=== PATIENT | female | born 1945 | race Caucasian/White ===

== ENCOUNTER 2017-04-24 20:05 | Inpatient (IN) | payer OTHER, MEDICARE ==
[~2017-04-24] VITALS: Ht 157.5 cm; Wt 77.1 kg
--- NOTE | 2017-04-24 20:33 | ED UPPER/LOWER EXTREMITY COMPL ---
History of Present Illness General Chief Complaint: Animal/Insect Bite Stated Complaint: "CAT BITE LT WRIST THIS MORNING" Source: patient Exam Limitations: no limitations Vital Signs & Intake/Output Vital Signs & Intake/Output Vital Signs Date Time Temp Pulse Resp B/P B/P Pulse O2 O2 Flow FiO2 Mean Ox Delivery Rate 04/24 2025 99.8 84 18 156/88 97 Room Air Allergies Coded Allergies: amoxicillin (From AUGMENTIN) (RASH 04/24/17) clarithromycin (RASH 04/24/17) clavulanic acid (From AUGMENTIN) (RASH 04/24/17) warfarin (RASH FROM GENERIC OKAY WITH BRAND NAME PER PT 04/24/17) Reconcile Medications Apixaban (Eliquis) 2.5 MG TABLET 1 TAB PO BID BLOOD THINNER (Reported) Aspirin (Ecotrin*) 81 MG TABLET.DR 1 TAB PO QAM HEART/BLOOD (Reported) Atorvastatin Calcium 40 MG TABLET 1 TAB PO DAILY CHOLESTEROL (Reported) Isosorbide Mononitrate (Isosorbide Mononitrate ER) 60 MG TAB.ER.24H 1 TAB PO DAILY HEART (Reported) Lisinopril 5 MG TABLET 1 TAB PO DAILY BP (Reported) Metoprolol Succ XL (Toprol XL) 25 MG TAB 1 TAB PO DAILY HEART/BP (Reported) Omeprazole 20 MG CAPSULE.DR 1 CAP PO DAILY GI (Reported) Triage Note: 72F SUSTAINED CAT BITE TO LEFT FOREARM THIS MORNING BY HER CAT. REPORTS IT IS UTD ON IT'S SHOTS. PT TOOK A CIPRO 500MG BUT REDNESS AND SWELLING IS WORSENING AND ASCENDING UP ARM. TEMP 99.8 IN TRIAGE. NOTIFIED FOR ORDERS. Triage Nurses Notes Reviewed? yes Onset: Gradual Duration: day(s): Timing: recent history Severity: moderate Pain/Injury Location: Left: Wrist. Method of Injury: cat bite Modifying Factors: Improves With: rest. Associated Symptoms: swelling, redness HPI: 72 yo woman was bit by her cat in her left wrist earlier this morning. She notes that the redness, tenderness and swelling began soon thereafter and worsened this evening. She notes that the redness is traveling up her forearm. She notes no fever, chills, discharge. She is otherwise well. Past History Travel History Traveled to [place] past 21 day No Medical History Any Pertinent Medical History? see below for history Cardiovascular: CAD History of MRSA: No History of VRE: No History of CDIFF: No Pneumonia Vaccine: 12/16/11 Influenza Vaccine: 01/13/13 Surgical History Surgical History: ptca Psychosocial History Who do you live with Daughter Services at Home None What is your primary language Bulgarian Family History Family History, If Any: MOTHER (CAD in her 50sHeart Failure in 70s). BROTHER (Bypass surgery in 60s). FATHER (lung cancer). Hx Contributory? No Review of Systems Review of Systems Constitutional: Reports: no symptoms. EENTM: Reports: no symptoms. Respiratory: Reports: no symptoms. Cardiovascular: Reports: no symptoms. Gastrointestinal/Abdominal: Reports: no symptoms. Genitourinary: Reports: no symptoms. Musculoskeletal: Reports: no symptoms. Skin: Reports: no symptoms. Neurological/Psychological: Reports: no symptoms. Hematologic/Endocrine: Reports: no symptoms. Immunological: Reports: no symptoms. All Other Systems: Reviewed and Negative Physical Exam Physical Exam General Appearance: well developed/nourished, mild distress Head: atraumatic Eyes: Bilateral: normal appearance. Ears, Nose, Throat: normal pharynx, normal ENT inspection, hearing grossly normal Neck: normal inspection, supple Cardiovascular/Respiratory: regular rate/rhythm Back: normal inspection Hand Left: 4 punctate lesions in left wrist with erythema, swelling, no discharge. the area of swelling/erythema is 3x4cm, there is a lymphangitic streak that extends to upper anterior and posterior forearm. no crepitus. ROM is normal. Skin: intact, normal color, warm/dry Lymphatic: no anterior cervical vasyl Progress Differential Diagnosis: cellulitis, cat bite vs other. Plan of Care: Orders Procedure Date/time Status Nothing by Mouth 04/25 B Active Saline Lock 04/24 2245 Active Misc Message 04/24 2245 Active ED Holding Orders 04/24 2245 Active Admit to inpatient 04/24 2245 Active Vital Signs 04/24 2245 Active Code Status 04/24 2245 Active EKG 04/24 2045 Active BLOOD CULTURE 04/24 2034 Active BLOOD CULTURE 04/24 2029 Active COMPREHENSIVE METABOLIC PANEL 04/24 2029 Complete CBC WITHOUT DIFFERENTIAL 04/24 2029 Complete Laboratory Tests 04/24/172046: Anion Gap 13, Estimated GFR > 60, BUN/Creatinine Ratio 21.1, Glucose 103 H, Calcium 9.5, Total Bilirubin 0.8, AST 70 H, ALT 94 H, Alkaline Phosphatase 91, Total Protein 7.4, Albumin 4.5, Globulin 2.9, Albumin/Globulin Ratio 1.6, CBC w Diff NO MAN DIFF REQ, RBC 4.11 L, MCV 93.3, MCH 31.0, MCHC 33.3, RDW 13.2, MPV 7.6, Gran % 77.2 H, Lymphocytes % 13.7 L, Monocytes % 7.9, Eosinophils % 0.8, Basophils % 0.4, Absolute Granulocytes 9.6 H, Absolute Lymphocytes 1.7, Absolute Monocytes 1.0 H, Absolute Eosinophils 0.1, Absolute Basophils 0.1 Microbiology 04/24 2142 BLOOD: Blood Culture - RECD 04/24 2046 BLOOD: Blood Culture - RECD Diagnostic Imaging: Viewed by Me: Radiology Read. Discussed w/RAD: Radiology Read. Radiology Impression: PATIENT: OLIVER PLASENCIA PRESENT AGE: 72 PATIENT ACCOUNT NO: [id number] : 44 LOCATION: [facility] ORDERING PHYSICIAN: Thor Faria MD SERVICE DATE: 04/24/17-2029 EXAM TYPE: RAD - XRY-FOREARM, LEFT; XRY-WRIST COMPLETE-LEFT EXAMINATION: XR FOREARM, LEFT Left wrist series CLINICAL INFORMATION: Pain swelling COMPARISON: None TECHNIQUE: AP and lateral views of the left forearm were obtained. 4 views of the left wrist FINDINGS: Left wrist: There is prominent chondrocalcinosis most evident along the triangle fibrocartilage complex. There is severe arthrosis of the first carpometacarpal joint manifested by joint space narrowing prominent marginal osteophytes subchondral cystic change and subluxation. The remaining bone and joints are normal. Left forearm - the radius and ulna are intact without fracture. IMPRESSION: Chondrocalcinosis. Severe arthrosis of the first carpometacarpal joint No abnormality of the ulna or radius. DICTATED BY: Kevin Tavares MD DATE/TIME DICTATED:04/24/172121 HAND SILVERING SUPERVISOR: MOIRA DATE/TIME TRANSCRIBED:04/24/172121 CONFIDENTIAL, DO NOT COPY WITHOUT APPROPRIATE AUTHORIZATION. <Electronically signed in Other Vendor System> SIGNED BY: Kevin Tavares MD 04/24/172129 Initial ED EKG: nsr, no acute changes. Comments: PATIENT: OLIVER PLASENCIA PRESENT AGE: 72 PATIENT ACCOUNT NO: [id number] : 44 LOCATION: [facility] ORDERING PHYSICIAN: Thor Faria MD SERVICE DATE: 04/24/17 EXAM TYPE: RAD - XRY-FOREARM, LEFT; XRY-WRIST COMPLETE-LEFT EXAMINATION: XR FOREARM, LEFT Left wrist series CLINICAL INFORMATION: Pain swelling COMPARISON: None TECHNIQUE: AP and lateral views of the left forearm were obtained. 4 views of the left wrist FINDINGS: Left wrist: There is prominent chondrocalcinosis most evident along the triangle fibrocartilage complex. There is severe arthrosis of the first carpometacarpal joint manifested by joint space narrowing prominent marginal osteophytes subchondral cystic change and subluxation. The remaining bone and joints are normal. Left forearm - the radius and ulna are intact without fracture. IMPRESSION: Chondrocalcinosis. Severe arthrosis of the first carpometacarpal joint No abnormality of the ulna or radius. DICTATED BY: Kevin Tavares MD DATE/TIME DICTATED:04/24/172121 HAND SILVERING SUPERVISOR:MOIRA DATE/TIME TRANSCRIBED:04/24/172121 CONFIDENTIAL, DO NOT COPY WITHOUT APPROPRIATE AUTHORIZATION. <Electronically signed in Other Vendor System> SIGNED BY: Kevin Tavares MD 04/24 Departure Departure Disposition: STILL A PATIENT Condition: Stable Clinical Impression Primary Impression: Cat bite involving extremity Secondary Impressions: Cellulitis Referrals: Reena Ku (PCP) Departure Forms: Customer Survey General Discharge Information
[2017-04-24 20:58] LABS: ABSOLUTE BASOPHIL COUNT 0.1 /CUMM (0.0-0.2); ABSOLUTE EOSINOPHIL COUNT 0.1 /CUMM (0.0-0.7); ABSOLUTE GRANULOCYTE CT 9.6 /CUMM (1.4-6.5); ABSOLUTE LYMPH COUNT 1.7 /CUMM (1.2-3.4); BASOPHIL % 0.4 % (0.0-2.0); EOSINOPHIL % 0.8 % (0-5); GRANULOCYTE % 77.2 % (42.2-75.2); HEMATOCRIT 38.3 % (37-47); MEAN CORPUSCULAR HGB CONC 33.3 G/DL (33.0-37.0); MEAN CORPUSCULAR VOLUME 93.3 FL (81.0-99.0); MEAN PLATELET VOLUME 7.6 FL (7.4-10.4); PLATELET COUNT 217 /CUMM (130-400); RBC DISTRIBUTION WIDTH 13.2 % (11.5-14.5); RED BLOOD CELL CT 4.11 /CUMM (4.20-5.40); WHITE BLOOD CELL COUNT 12.4 /CUMM (4.8-10.8)
--- NOTE | 2017-04-24 21:30 | RADIOLOGY REPORT ---
EXAMINATION: XR FOREARM, LEFT Left wrist series CLINICAL INFORMATION: Pain swelling COMPARISON: None TECHNIQUE: AP and lateral views of the left forearm were obtained. 4 views of the left wrist FINDINGS: Left wrist: There is prominent chondrocalcinosis most evident along the triangle fibrocartilage complex. There is severe arthrosis of the first carpometacarpal joint manifested by joint space narrowing prominent marginal osteophytes subchondral cystic change and subluxation. The remaining bone and joints are normal. Left forearm - the radius and ulna are intact without fracture. IMPRESSION: Chondrocalcinosis. Severe arthrosis of the first carpometacarpal joint No abnormality of the ulna or radius.
[2017-04-24] MEDS ORDERED: ELIQUIS2.5 M1 PO (22:16)
[2017-04-24] MEDS ORDERED: ASPIRIN EC81 M1 PO (22:16)
[2017-04-24] MEDS ORDERED: OMEPRAZOLE20 M2 PO (22:18)
[2017-04-24] MEDS ORDERED: LISINOPRIL5 M1 PO (22:47)
[2017-04-24] MEDS ORDERED: ATORVASTATIN CA40 M1 PO (22:47)
[2017-04-24] MEDS ORDERED: TOPROL XL25 M1 PO (22:47)
[2017-04-24] MEDS ORDERED: ISOSORBIDE MONO60 M1 PO (22:48)
--- NOTE | 2017-04-25 01:22 | History & Physical ---
Renata Knowles MD 04/25/17 0121: General Information and HPI MD Statement: I have seen and personally examined OLIVER PLASENCIA and documented this H&P. The patient is a 72 year old F who presented with a patient stated chief complaint of []. Source of Information: patient, old records, EMS Exam Limitations: no limitations History of Present Illness: Patient is a 72-year-old female with a PMH of CAD s/p recent bare metal stent placed to the LAD followed by periprocedural OR (EF 45% 2013), recurrent UTI on cipro, urinary incontinence presented to [place] with worsening of left hand erythema and swelling after her cat bite this morning. She was trying to inject insulin to her cat and subsequently bitten by her cat. She started to experience swelling followed by erythema and worsening pain prompting her to come to ER. She reported excruciating pain with spreading of the swelling/erythema despite taking ciprofloxacin in the morning. She is compliant with all her medications. She does have shortness of breath with exertion at baseline with dry cough, mild swelling of the legs. Denies any fever/pain/palpitations/dizziness/lightheadedness. Allergies/Medications Allergies: Coded Allergies: amoxicillin (From AUGMENTIN) (RASH 04/24/17) clarithromycin (RASH 04/24/17) clavulanic acid (From AUGMENTIN) (RASH 04/24/17) warfarin (RASH FROM GENERIC OKAY WITH BRAND NAME PER PT 04/24/17) Home Med list Apixaban (Eliquis) 2.5 MG TABLET 1 TAB PO BID BLOOD THINNER (Reported) Aspirin (Ecotrin*) 81 MG TABLET.DR 1 TAB PO QAM HEART/BLOOD (Reported) Atorvastatin Calcium 40 MG TABLET 1 TAB PO DAILY CHOLESTEROL (Reported) Isosorbide Mononitrate (Isosorbide Mononitrate ER) 60 MG TAB.ER.24H 1 TAB PO DAILY HEART (Reported) Lisinopril 5 MG TABLET 1 TAB PO DAILY BP (Reported) Metoprolol Succ XL (Toprol XL) 25 MG TAB 1 TAB PO DAILY HEART/BP (Reported) Omeprazole 20 MG CAPSULE.DR 1 CAP PO DAILY GI (Reported) Compliance With Home Meds: GOOD Past History Travel History Traveled to [place] past 21 day No Medical History Cardiovascular: CAD History of MRSA: No History of VRE: No History of CDIFF: No Pneumonia Vaccine: 12/16/11 Influenza Vaccine: 01/13/13 Surgical History Surgical History: ptca Past Family/Social History Family History Relations & Conditions if any MOTHER (CAD in her 50sHeart Failure in 70s). BROTHER (Bypass surgery in 60s). FATHER (lung cancer). Psychosocial History Where do you live? Home Who Do You Live With? child Services at Home: None Primary Language: Romanian Smoking Status: Former Smoker ETOH Use: occasional use Illicit Drug Use: denies illicit drug use Functional Ability ADLs Independent: dressing, eating, toileting, bathing. Ambulation: independent IADLs Independent: shopping, housework, finances, food prep, telephone, transportation , medication admin. Review of Systems Review of Systems Constitutional: Reports: no symptoms. EENTM: Reports: no symptoms. Cardiovascular: Reports: no symptoms. Respiratory: Reports: no symptoms. Exam & Diagnostic Data Last 24 Hrs of Vital Signs/I&O Vital Signs Date Time Temp Pulse Resp B/P B/P Pulse O2 O2 Flow FiO2 Mean Ox Delivery Rate 04/25 0116 98.8 80 16 110/58 98 Room Air 04/24 2331 99.0 85 18 104/54 98 Room Air 04/24 2026 99.8 84 18 156/88 97 Room Air Intake & Output 04/25 0800 04/25 0000 04/24 1600 Intake Total Output Total Balance Patient 77.111 kg Weight Weight Reported by Patient Measurement Method Physical Exam General Appearance Alert, Oriented X3, Cooperative Skin No Breakdown, significant erythema with swelling on the right upper extremity, evident bites on the hand. Tender to touch Skin Temp/Moisture Exam: Warm/Dry HEENT Atraumatic, PERRLA Neck Supple, No JVD Cardiovascular Normal S1, Normal S2 Lungs Clear to Auscultation, Normal Air Movement Abdomen Normal Bowel Sounds, Soft, No Tenderness Neurological Normal Gait, Normal Speech, Strength at 5/5 X4 Ext, Normal Tone, Sensation Intact Extremities No Clubbing, No Cyanosis, 2+ pitting edema present Vascular Normal Pulses, Pulses Symmetrical Assessment/Plan Assessment: Patient is a 72-year-old female with a PMH of CAd, periprocedural OR (EF 45% 2013), recurrent UTI on cipro, urinary incontinence presented to [facility] with worsening of left hand erythema and swelling after bitten by her cat despite taking ciprofloxacin. Vitals are unreamrakable. Physical exam notable for left upper extremity erythema, swelling with tenderness on palpation. Cat bites are clearly visible on the left wrist region. Rash extended upto the elbow. Heart s1 , s2 normal. Lungs clear, abdomen benign. Lower extrmities 2+ edema present. Labs significant for white count of 12, mild transaminitis. Cat bite cellulitis Plan Admit to general medicine floor Cat bite cellulitis - left hand Patient is immunocompetent. Coverage should be broad including strep, staph, anerobes, Gram negative(Pasturella/capnocytophagia). As she is allergic to penicillin with rash which can cover all of these, it is required to cover with dual agents. IV ceftriaxone to cover Gram negative and gram positives, IV metrogyl to cover anerobes. Pain management with percocet, morphine. We will obtain a ultrasond of the left hand to rule out abscess. Patient did know that we are not having plastic surgery back up and need to be. transferred if deemed. Hisotory of CAD and OR with EF 45% continue ASA 81mg, Imdur 60mg, lisinopril 5mg, Trasaminitis - likely infection related Hold - Atrovastatin 40mg daily History of ?PE On Apixaban 2.5mg BID History of recurrent UTI - prophylactically on cipro Urinary incontinence DVT prophylaxis as above Code stauts full code As Ranked By This Provider Problem List: 1. Cat bite involving extremity 2. Cellulitis 3. Full code status Core Measures/Misc (11/30) Acute Coronary Syndrome ACS Diagnosis: No Congestive Heart Failure Congestive Heart Failure Diagnosis No Cerebrovascular Accident CVA/TIA Diagnosis: No VTE (View Protocol) VTE Risk Factors Acute Medical Illness No Mechanical VTE Prophylaxis d/t N/A MechProphylax Ordered No VTE Pharm Prophylaxis d/t NA PharmProphylax ordered Sepsis (View protocol) Sepsis Present: No Resident Review Statement Resident Statement: examined this patient, discussed with internal corrosion specialist, agreed with internal corrosion specialist, discussed with family, reviewed EMR data (avail), discussed with nursing , discussed with case mgmt, reviewed images, amended to note Other Findings: ABOVE Jonny HINSON, [facility] 04/25/17 0140: Attending MD Review Statement Attending Statement Attending MD Statement: examined this patient, discuss w/resident/PA/RECYCLING OR RUBBISH COLLECTOR, agreed w/resident/PA/RECYCLING OR RUBBISH COLLECTOR, reviewed images, amended to note Attending Assessment/Plan: 72 yo F with h/o HTN, CAD s/p stent (2014, c/b periprocedural OR), PE on eliquis , recurrent UTI's on Cipro, is here for evaluation of left hand pain and swelling. Patient sustained a cat bite to her left wrist while she was trying to administer insulin to her diabetic domestic cat (vaccinated). She gradually developed swelling and erythema around the wrist extending to the forearm. She also experiened pain which brought her in to the ER. She took her regular dose of Cipro but noticed it did not help her symptoms. Vitals stable: Tmax 99.8. Left wrist/hand diffuse swelling 4x4 cm area noted to left wrist, no fluctuance or discharge, 3-4 punctate cat bite mota noted with erythema extending from wrist to forearm. Hand/ fingers are not involved, no swelling. ROM of fingers is normal, wrist is limited but present. Peripheral pulses are well felt. No lymphadenopathy appreciated. Labs: WBC 12.4, BUN 19, AST 70, ALT 94. Wrist and forearm Xray: chondrocalcinosis, severe arthrosis of first carpometacarpal joint. No abnormality of radius or ulna. EKG: sinus rhythm. Assessment and plan: 1. Left hand cellulitis secondary to cat bite 2. Transaminitis 2/2 infection 3. History of CAD 4. Essential hypertension 5. History of PE on eliquis - Admit to General medicine - Elevate left hand - Neurovascular checks Q4 - Blood cultures x 2 - Obtain left hand ultrasound to assess for abscess - Patient has multiple antibiotic allergies, will continue with ceftriaxone and flagyl for gram negative and anaerobic coverage - Gentle hydration - Pain management with percocet or morphine - We do not have anyone on Plastic surgery on-call this weekend. I explained this to the patient and also gave her the option of being transferred from ER to [facility]. However, she decided to stay and continue antibiotics, and if need arises is ok to be transferred. - Trend LFTs, hold statin for now until transaminitis resolves. DVT ppx Eliquis. Full code.
--- NOTE | 2017-04-25 06:21 | Admission Certification ---
Admission Certification Certification Statement - As attending physician, I certify that at the time of - admission, based on clinical presentation, severity of - symptoms, need for further diagnostic testing and - therapeutic interventions, and risk of adverse outcomes - without in-hospital treatment, in my clinical assessment, - this patient requires an acute hospital stay for a minimum - of two nights or longer. I have also considered psychsocial - factors such as support system, advanced age, financial - issues, cognitive issues, and failed out-patient treatments, - past re-admission history, safety of patient, and lack of - compliance as applicable. Specific rationale supporting this admission is: Cat bite cellulitis of left hand.
[2017-04-25 06:28] VITALS: BP 124/72
--- NOTE | 2017-04-25 14:14 | PN- Att Addend ---
Attending Addendum Attending Brief Note Patient seen and examined, the left hand/wrist/upper extremity is overall improving. She still has pain and limited range of motion but it's better than before. Vital Signs Date Time Temp Pulse Resp B/P B/P Pulse O2 O2 Flow FiO2 Mean Ox Delivery Rate 04/25 949 84 130/62 04/25 0850 84 130/62 04/25 0850 84 130/62 04/25 0628 98.1 82 18 124/72 95 Room Air 04/25 0116 98.8 80 16 110/58 98 Room Air 04/24 2331 99.0 85 18 104/54 98 Room Air 04/24 2025 99.8 84 18 156/88 97 Room Air on exam; aox3, nad. cv; s1,s2, rrr resp; clear abd; soft, nt, bs+ ext; no edema skin; erythema on the left upper extremity is improving as well as the swelling. Laboratory Tests 04/25 Chemistry Sodium (137 - 145 mmol/L) 138 Potassium (3.5 - 5.1 mmol/L) 4.1 Chloride (98 - 107 mmol/L) 100 Carbon Dioxide (22 - 30 mmol/L) 25 Anion Gap (5 - 16) 13 BUN (7 - 17 mg/dL) 19 H Creatinine (0.5 - 1.0 mg/dL) 0.9 Estimated GFR (>60 ml/min) > 60 BUN/Creatinine Ratio (7 - 25 %) 21.1 Glucose (65 - 99 mg/dL) 103 H Calcium (8.4 - 10.2 mg/dL) 9.5 Total Bilirubin (0.2 - 1.3 mg/dL) 0.8 AST (14 - 36 U/L) 70 H ALT (9 - 52 U/L) 94 H Alkaline Phosphatase (<127 U/L) 91 Total Protein (6.3 - 8.2 g/dL) 7.4 Albumin (3.5 - 5.0 g/dL) 4.5 Globulin (1.9 - 4.2 gm/dL) 2.9 Albumin/Globulin Ratio (1.1 - 2.2 %) 1.6 Hematology CBC w Diff NO MAN DIFF REQ WBC (4.8 - 10.8 /CUMM) 12.4 H RBC (4.20 - 5.40 /CUMM) 4.11 L Hgb (12.0 - 16.0 G/DL) 12.7 Hct (37 - 47 %) 38.3 MCV (81.0 - 99.0 FL) 93.3 MCH (27.0 - 31.0 PG) 31.0 MCHC (33.0 - 37.0 G/DL) 33.3 RDW (11.5 - 14.5 %) 13.2 Plt Count (130 - 400 /CUMM) 217 MPV (7.4 - 10.4 FL) 7.6 Gran % (42.2 - 75.2 %) 77.2 H Lymphocytes % (20.5 - 51.1 %) 13.7 L Monocytes % (1.7 - 9.3 %) 7.9 Eosinophils % (0 - 5 %) 0.8 Basophils % (0.0 - 2.0 %) 0.4 Absolute Granulocytes (1.4 - 6.5 /CUMM) 9.6 H Absolute Lymphocytes (1.2 - 3.4 /CUMM) 1.7 Absolute Monocytes (0.10 - 0.60 /CUMM) 1.0 H Absolute Eosinophils (0.0 - 0.7 /CUMM) 0.1 Absolute Basophils (0.0 - 0.2 /CUMM) 0.1 Urines Urine Color (YEL,AMB,STR) YEL Urine Clarity (CLEAR) CLEAR Urine pH (5.0 - 8.0) 6.0 Ur Specific [place] (1.001 - 1.035) 1.010 Urine Protein (NEG,<30 MG/DL) NEG Urine Ketones (NEG) NEG Urine Nitrite (NEG) NEG Urine Bilirubin (NEG) NEG Urine Urobilinogen (0.1 - 1.0 EU/dl) 0.2 Ur Leukocyte Esterase (NEG) TRACE H Ur Microscopic SEDIMENT EXAMINED Urine RBC (0 - 5 /HPF) RARE Urine WBC (0 - 2 /HPF) RARE Ur Epithelial Cells (NONE,FEW) FEW Urine Bacteria (NEG/NONE) RARE H Urine Hemoglobin (NEG) NEG Urine Glucose (N MG/DL) NEG A/P; 72 y/o F with pmh sig for PMH of CAD s/p recent bare metal stent placed to the LAD followed by periprocedural MS (EF 45% 2013), recurrent UTI on cipro, urinary incontinence PE on eliquis, admitted with left upper extremity cellulitis secondary to get bite. We'll continue the current antibiotics and follow the response. We'll follow-up on the blood cultures. As noted on Dr. Fuller's note yesterday, patient did not want to go to [place] for the plastic surgery. We'll continue the rest of the medications. DVT prophylaxis: Kristin.
[2017-04-25 14:39] VITALS: BP 124/58
--- NOTE | 2017-04-25 14:46 | ULTRASOUND REPORT ---
EXAMINATION: US SUPERFICIAL IMAGING, LEFT WRIST/FOREARM CLINICAL INFORMATION: Erythema and swelling with drainage on the forearm. COMPARISON: None TECHNIQUE: -Oriented linear transducer using grayscale and color Doppler sonographic technique is used to assess the left wrist and left forearm at the site of a cat bite and cellulitis. FINDINGS/IMPRESSION: Edematous and hyperemic subcutaneous soft tissues are seen at the site of the reported cat bite involving the left forearm and wrist, compatible with cellulitis. No discrete drainable fluid collections are identified.
[2017-04-25 22:40] VITALS: BP 106/60
[2017-04-26 06:46] VITALS: BP 117/64
[2017-04-26 08:38] LABS: ABSOLUTE BASOPHIL COUNT 0 /CUMM (0.0-0.2); ABSOLUTE EOSINOPHIL COUNT 0.2 /CUMM (0.0-0.7); ABSOLUTE GRANULOCYTE CT 4.6 /CUMM (1.4-6.5); ABSOLUTE LYMPH COUNT 2.2 /CUMM (1.2-3.4); ABSOLUTE MONOCYTE COUNT 0.9 /CUMM (0.10-0.60); BASOPHIL % 0.5 % (0.0-2.0); EOSINOPHIL % 2.7 % (0-5); GRANULOCYTE % 57.7 % (42.2-75.2); HEMATOCRIT 37.1 % (37-47); MEAN CORPUSCULAR HGB CONC 34.2 G/DL (33.0-37.0); MEAN CORPUSCULAR VOLUME 93.7 FL (81.0-99.0); MEAN PLATELET VOLUME 7.8 FL (7.4-10.4); PLATELET COUNT 202 /CUMM (130-400); RBC DISTRIBUTION WIDTH 13.3 % (11.5-14.5); RED BLOOD CELL CT 3.96 /CUMM (4.20-5.40); WHITE BLOOD CELL COUNT 7.9 /CUMM (4.8-10.8)
--- NOTE | 2017-04-26 10:56 | PN- Housestaff ---
See Addendum Subjective Follow-up For: cat bite cellulitis Subjective: skin erythema improving on IV antibiotics, afebrile left wrist pain on flexion Review of Systems Constitutional: Reports: see HPI. Objective Last 24 Hrs of Vital Signs/I&O Vital Signs Date Time Temp Pulse Resp B/P B/P Pulse O2 O2 Flow FiO2 Mean Ox Delivery Rate 04/26 911 82 118/74 04/26 0912 82 118/74 04/26 0911 82 118/74 04/26 0646 98.4 70 18 117/64 94 Room Air 04/25 2240 98.3 72 20 106/60 92 Room Air 04/25 1439 98.5 77 20 124/58 91 Intake & Output 04/26 1600 04/26 0800 04/26 0000 Intake Total 380 300 Output Total Balance 380 300 Intake, IV 180 Intake, Oral 200 300 Physical Exam General Appearance: Alert, Oriented X3, Cooperative, No Acute Distress Cardiovascular: Regular Rate, Normal S1, Normal S2, No Murmurs Lungs: Clear to Auscultation, Normal Air Movement Abdomen: Normal Bowel Sounds, Soft, No Tenderness, No Masses Extremities: No Clubbing, No Cyanosis, Normal Pulses, LUE cellulitis improving, bilateral lower extremity edema Current Medications: Current Medications Sig/Anh Start time Last Medication Dose Route Stop Time Status Admin Acetaminophen 650 MG Q6P PRN 04/25 0215 AC 04/26 PO 09 Apixaban 2.5 MG BID 04/25 0210 AC 04/26 PO 09 Aspirin Buffered 81 MG QAM 04/25 1000 AC 04/26 PO 09 Ceftriaxone Sodium 1,000 MG DAILY 04/25 1000 AC 04/26 IV 0909 Isosorbide 60 MG DAILY 04/25 1000 AC 04/26 Mononitrate PO 09 Lisinopril 5 MG DAILY 04/25 1000 AC 04/26 PO 0911 Metoprolol Succinate 25 MG DAILY 04/25 1000 AC 04/26 PO 0912 Metronidazole 500 MG IQ8 04/25 0800 AC 04/26 N/A 1 UNIT IV 0909 Morphine Sulfate 2 MG Q6P PRN 04/25 0215 AC IV Omeprazole 20 MG DAILY 04/25 1000 AC 04/26 PO 0911 Ondansetron HCl 4 MG ONCE ONE 04/25 1200 DC 04/25 PO 04/25 1201 1422 Oxycodone/ 1 TAB Q6P PRN 04/25 0215 AC 04/25 [place] 0948 Last 24 Hrs of Lab/Rolly Results Last 24 Hrs of Labs/Mics: Laboratory Tests 04/26/17 0732: Total Bilirubin 1.1, Direct Bilirubin 0.4, AST 50 H, ALT 72 H, Alkaline Phosphatase 79, Total Protein 6.5, Albumin 3.7, CBC w Diff NO MAN DIFF REQ, RBC 3.96 L, MCV 93.7, MCH 32.0 H, MCHC 34.2, RDW 13.3, MPV 7.8, Gran % 57.7, Lymphocytes % 27.6, Monocytes % 11.5 H, Eosinophils % 2.7, Basophils % 0.5, Absolute Granulocytes 4.6, Absolute Lymphocytes 2.2, Absolute Monocytes 0.9 H, Absolute Eosinophils 0.2, Absolute Basophils 0 Assessment/Plan Assessment: 72-year-old female with a PMH of CAD, periop [place] (EF 45% 2013), recurrent UTI on cipro, urinary incontinence presented to [facility] with worsening of left hand erythema and swelling after bitten by her cat. Cat bite cellulitis: LUE Leukocytosis resolved, afebrile from admission Requires broad coverage PCN allergy IV ceftriaxone to cover Gram negative and gram positives, IV flagyl to cover anerobes. Analgesia with percocet and morphine. No collections or abscesses on ultrasound CAD: Continue Aspirin, nitrate, and ACEi Transaminitis: Statin therapy on hold Pulmonary embolism: Continue Apixaban 2.5mg BID Heart healthy diet DVT ppx-on eliquis Full code Problem List: 1. CAD (coronary artery disease) 2. Cat bite involving extremity 3. Cellulitis Pain Ratin Pain Location: LUE Pain Goal: Pain 4 or less Pain Plan: prn Tomorrow's Labs & Rationales: none
[2017-04-26 15:26] VITALS: BP 122/68
[2017-04-26 22:47] VITALS: BP 110/62
[2017-04-27 07:22] VITALS: BP 116/58
[2017-04-27 07:23] VITALS: BP 132/80
--- NOTE | 2017-04-27 08:50 | PN- Housestaff ---
See Addendum Subjective Follow-up For: Left arm cellulitis Subjective: erythema and pain on left arm improved afebrile no other complaints Review of Systems Constitutional: Reports: see HPI. Objective Last 24 Hrs of Vital Signs/I&O Vital Signs Date Time Temp Pulse Resp B/P B/P Pulse O2 O2 Flow FiO2 Mean Ox Delivery Rate 04/27 0807 98.0 61 24 132/80 04/27 0807 98.0 61 24 132/80 04/27 0807 98.0 61 24 132/80 04/27 0723 98.0 61 24 132/80 98 Nasal 3.0L Cannula 04/27 0722 98.1 77 20 116/58 93 Room Air 04/26 2247 98.2 69 20 110/62 91 Room Air 04/26 1526 98.0 71 20 122/68 94 Intake & Output 04/27 1600 04/27 0800 04/27 0000 Intake Total 220 1120 Output Total 900 Balance 220 220 Intake, IV 100 120 Intake, Oral 120 1000 Number 0 Bowel Movements Output, Urine 900 Physical Exam General Appearance: Alert, Oriented X3, Cooperative, No Acute Distress Cardiovascular: Regular Rate, Normal S1, Normal S2, No Murmurs Lungs: Clear to Auscultation, Normal Air Movement Abdomen: Normal Bowel Sounds, Soft, No Tenderness, No Masses Extremities: No Clubbing, No Cyanosis, No Edema, Normal Pulses Current Medications: Current Medications Sig/Anh Start time Last Medication Dose Route Stop Time Status Admin Acetaminophen 650 MG Q6P PRN 04/25 0215 AC 04/26 PO 0909 Apixaban 2.5 MG BID 04/25 0210 AC 04/27 PO 08 Aspirin Buffered 81 MG QAM 04/25 1000 AC 04/27 PO 0807 Ceftriaxone Sodium 1,000 MG DAILY 04/25 1000 AC 04/27 IV 0936 Isosorbide 60 MG DAILY 04/25 1000 AC 04/27 Mononitrate PO 08 Lisinopril 5 MG DAILY 04/25 1000 AC 04/27 PO 08 Metoprolol Succinate 25 MG DAILY 04/25 1000 AC 04/27 PO 0807 Metronidazole 500 MG IQ8 04/25 0800 AC 04/27 N/A 1 UNIT IV 0807 Morphine Sulfate 2 MG Q6P PRN 04/25 0215 AC IV Omeprazole 20 MG DAILY 04/25 1000 AC 02/12 PO 0807 Oxycodone/ 1 TAB Q6P PRN 04/25 0215 AC 04/27 Acetaminophen PO 0009 Polyethylene Glycol 17 GM DAILY 04/28 1000 AC PO Senna/Docusate Sodium 2 TAB AT BEDTIME 04/27 2200 AC PO Assessment/Plan Assessment: 72-year-old female with a PMH of CAD, periop [place] (EF 45% 2013), recurrent UTI on cipro, urinary incontinence presented to [facility] with worsening of left hand erythema and swelling after bitten by her cat. Cat bite cellulitis: LUE Leukocytosis resolved, afebrile from admission Requires broad coverage PCN allergy Day 4 IV ceftriaxone for Gram negative and gram positives IV flagyl to cover anaerobes Convert to PO metronidazole and doxycycline for discharge Analgesia with percocet and morphine. No collections or abscesses on ultrasound CAD: Continue Aspirin, nitrate, and ACEi Transaminitis: Statin therapy on hold Resume on discharge, follow up with PCP Pulmonary embolism: Continue Apixaban 2.5mg BID Heart healthy diet DVT ppx-on eliquis Full code Problem List: 1. CAD (coronary artery disease) 2. Cellulitis 3. Cat bite involving extremity Pain Ratin Pain Location: LUE Pain Goal: Pain 4 or less Pain Plan: prn Tomorrow's Labs & Rationales: none
[2017-04-27] MEDS ORDERED: VIBRAMYCIN100 MG PO (11:09)
[2017-04-27] MEDS ORDERED: FLAGYL500 MG PO (11:09)
--- NOTE | 2017-04-27 11:10 | Patient Discharge Instructions ---
Discharge Instructions General Discharge Information You were seen/treated for: CELLULITIS Special Instructions: Please follow up with your primary care physician within two weeks of discharge. Please return if you develop fever, worsening swelling, pain, and redness of the hand. Acute Coronary Syndrome Inclusion Criteria At DC or during hospital stay patient has or had the following: ACS DIAGNOSIS No Discharge Core Measures Meds if any: Prescribed or Continued at Discharge Meds if any: NOT Prescribed or Continued at Discharge Congestive Heart Failure Inclusion Criteria At DC or during hospital stay patient has or had the following: CHF DIAGNOSIS No Discharge Core Measures Meds if any: Prescribed or Continued at Discharge Meds if any: NOT Prescribed or Continued at Discharge Cerebrovascular accident Inclusion Criteria At DC or during hospital stay patient has or had the following: CVA/TIA Diagnosis No Discharge Core Measures Meds if any: Prescribed or Continued at Discharge Meds if any: NOT Prescribed or Continued at Discharge Venous thromboembolism Inclusion Criteria VTE Diagnosis No VTE Type NONE VTE Confirmed by (Test) NONE Discharge Core Measures - Per Current guidelines, there needs to be overlap - treatment for the first 5 days of Warfarin therapy. - If discharged on Warfarin prior to 5 days of - overlap therapy, the patient will need to be - assessed for post discharge needs including - *Post discharge parental anticoagulation - *Warfarin and/or parental anticoagulation education - *Follow up date to check INR post discharge At least 5 days overlap therapy as Inpatient No Meds if any: Prescribed or Continued at Discharge Note: Overlap Therapy is Warfarin and Anticoagulant Meds if any: NOT Prescribed or Continued at Discharge
--- NOTE | 2017-04-27 11:11 | Discharge Summary ---
Visit Information Visit Dates Admission Date: 04/24/17 Discharge Date: 04/28/17 Hospital Course Course Attending Physician: Devan Garcia MD Primary Care Physician: Reena Ku Hospital Course: 72 year old female with a past medical history significant for coronary artery disease with perioperative myocardial infarction (EF 45% 2013), recurrent urinary tract infections on ciprofloxacin, and urinary incontinence presented with worsening left arm cellulitis, pain, and tenderness extending from a cat bite near her wrist up to the level of her elbow. The patient had leukocytosis without fever on admission. She complained of rapidly spreading cellulitis, pain, and limited use of her arm requiring parenteral antibiotics. The patient was started on intravenous ceftriaxone and metronidazole because of her penicillin allergy and the need for broad coverage associated with cat bites. After several days of parenteral therapy, the cellulitis responded well and receded just to around the puncture wounds from the bite and her pain was significantly improved. The patient was converted to oral therapy and discharged with metronidazole and doxycycline to complete a ten day course of antibiotics. An ultrasound of the left upper extremity was performed and negative for any abscesses or collections. The patient was discharged home with instructions to follow up with her primary care provider within two weeks of discharge. Of note, she had some mild transaminitis with statin therapy withheld during hospitalization. The patient was told to continue her home medication regimen on discharge and follow up with her primary vs green chain marker regarding monitoring liver function, adjusting, or discontinuing her statin therapy into the future. Allergies: Coded Allergies: amoxicillin (From AUGMENTIN) (RASH 04/24/17) clarithromycin (RASH 04/24/17) clavulanic acid (From AUGMENTIN) (RASH 04/24/17) warfarin (RASH FROM GENERIC OKAY WITH BRAND NAME PER PT 04/24/17) Disposition Summary Disposition Principal Diagnosis: Left arm cellulitis Transaminitis Additional Diagnosis: Coronary artery disease s/p stent Previous myocardial infarction Pulmonary embolism Discharge Disposition: home or self care Discharge Instructions General Discharge Information Code Status: Full Code Patient's Diet: Heart healthy Patient's Activity: As tolerated, no limitations Follow-Up Instructions/Appts: Please follow up with your primary care physician within two weeks of discharge. Medications at Discharge Discharge Medications: Continue taking these medications: Apixaban (Eliquis) 2.5 MG TABLET 1 Tablet ORAL TWICE DAILY Comments: Last Taken: 04/28/17 Time: 0900 Aspirin (Ecotrin*) 81 MG TABLET.DR 1 Tablet ORAL Every Morning Comments: Last Taken: 04/28/17 Time: 0900 AM Omeprazole (Omeprazole) 20 MG CAPSULE.DR 1 Capsule ORAL DAILY Comments: Last Taken: 04/28/17 Time: 0900 AM Metoprolol Succ XL (Toprol XL) 25 MG TAB 1 Tablet ORAL DAILY Comments: Last Taken: 04/28/17 Time: 0900 AM Lisinopril (Lisinopril) 5 MG TABLET 1 Tablet ORAL DAILY Comments: Last Taken: 04/28/17 Time: 0900 AM Atorvastatin Calcium (Atorvastatin Calcium) 40 MG TABLET 1 Tablet ORAL DAILY Comments: NOT TAKEN IN HOSPITAL Isosorbide Mononitrate (Isosorbide Mononitrate ER) 60 MG TAB.ER.24H 1 Tablet ORAL DAILY Comments: Last Taken: 04/28/17 Time: 0900 AM Start taking the following new medications: Doxycycline Hyclate (Vibramycin) 100 MG CAPSULE 1 Capsule ORAL TWICE DAILY Qty = 10 No Refills Metronidazole (Flagyl) 500 MG TABLET 1 Tablet ORAL TWICE DAILY Qty = 10 No Refills Oxycodone HCl (Oxycodone HCl) 5 MG TABLET 1 Tablet ORAL THREE TIMES DAILY as needed for PAIN Qty = 6 No Refills Instructions: . Copies To: Reena Ku Attending MD Review Statement Documenting Attending: Devan Garcia MD
[2017-04-27 14:12] VITALS: BP 100/50
[2017-04-27 22:10] VITALS: BP 100/60
[2017-04-28 06:10] VITALS: BP 110/70
--- NOTE | 2017-04-28 07:40 | PN- Housestaff ---
Subjective Follow-up For: Cat bite cellulitis Subjective: pain and swelling significantly improved cellulitis receded to only around the bite puncture wounds on iv antibiotics afebrile Review of Systems Constitutional: Reports: see HPI. Objective Last 24 Hrs of Vital Signs/I&O Vital Signs Date Time Temp Pulse Resp B/P B/P Pulse O2 O2 Flow FiO2 Mean Ox Delivery Rate 04/28 06 97.9 70 20 110/70 95 Room Air 04/27 2210 98.2 73 20 100/60 96 04/27 1412 97.9 67 20 100/50 100 04/27 0807 98.0 61 24 132/80 04/27 0807 98.0 61 24 132/80 04/27 0807 98.0 61 24 132/80 Intake & Output 04/28 0800 04/28 0000 04/27 1600 Intake Total 550 240 Output Total Balance 550 240 Intake, IV 100 Intake, Oral 450 240 Physical Exam General Appearance: Alert, Oriented X3, Cooperative, No Acute Distress Lungs: Clear to Auscultation, Normal Air Movement Abdomen: Normal Bowel Sounds, Soft, No Tenderness, No Masses Extremities: No Clubbing, No Cyanosis, No Edema, Normal Pulses, LUE erythema surrounding cat bite puncture wounds but cellulitis receded from elbow down to bite wound Current Medications: Current Medications Sig/Anh Start time Last Medication Dose Route Stop Time Status Admin Acetaminophen 650 MG .STK-MED ONE 04/27 1206 DC PO 04/27 1207 Acetaminophen 650 MG Q6P PRN 04/25 0215 AC 04/27 PO 1207 Apixaban 2.5 MG BID 04/25 0210 AC 04/27 PO 2150 Aspirin Buffered 81 MG QAM 04/25 1000 AC 04/27 PO 0807 Ceftriaxone Sodium 1,000 MG DAILY 04/25 1000 AC 04/27 IV 0936 Isosorbide 60 MG DAILY 04/25 1000 AC 04/27 Mononitrate PO 08 Lisinopril 5 MG DAILY 04/25 1000 AC 04/27 PO 0807 Metoprolol Succinate 25 MG DAILY 04/25 1000 AC 04/27 PO 0807 Metronidazole 500 MG IQ8 04/25 0800 AC 04/27 N/A 1 UNIT IV 2349 Morphine Sulfate 2 MG Q6P PRN 04/25 0215 AC IV Omeprazole 20 MG DAILY 04/25 1000 AC 04/27 PO 0807 Oxycodone/ 1 TAB Q6P PRN 04/25 0215 AC 04/28 Acetaminophen PO 0117 Polyethylene Glycol 17 GM DAILY 04/28 1000 AC PO Senna/Docusate Sodium 2 TAB AT BEDTIME 04/27 2200 AC PO Assessment/Plan Assessment: 72-year-old female with a PMH of CAD, periop [place] (EF 45% 2013), recurrent UTI on cipro, urinary incontinence presented to [facility] with worsening of left hand erythema and swelling after bitten by her cat. Cat bite cellulitis: LUE Leukocytosis resolved, afebrile from admission Requires broad coverage PCN allergy Day 5 IV ceftriaxone for Gram negative and gram positives IV flagyl to cover anaerobes Convert to PO metronidazole and doxycycline for discharge Analgesia with percocet and morphine. No collections or abscesses on ultrasound CAD: Continue Aspirin, nitrate, and ACEi Transaminitis: Statin therapy on hold Resume on discharge, follow up with PCP Pulmonary embolism: Continue Apixaban 2.5mg BID Heart healthy diet DVT ppx-on eliquis Full code Cellulitis significant improved with intravenous antibiotics, stable for discharge on PO antibiotics Problem List: 1. Cellulitis 2. Cat bite involving extremity Pain Ratin Pain Location: LUE Pain Goal: Pain 4 or less Pain Plan: prn Tomorrow's Labs & Rationales: none, discharge
[2017-04-28] MEDS ORDERED: VIBRAMYCIN100 MG PO (07:48)
[2017-04-28] MEDS ORDERED: FLAGYL500 MG PO (07:48)
[2017-04-28] MEDS ORDERED: OXYCODONE HCL5 M1 PO ×2 (07:51→10:08)
[2017-04-28 09:04] VITALS: BP 130/70
== END 2017-04-28 12:56 | DRG 603 ==
LOC: ERH 20:05 → 2NA 22:46 → ERHI 22:46 → ENRESERV 04-25 01:04 → ERH 04-25 01:19 → 2NA 04-25 01:58 → ENPENDDIS 04-28 10:35 → 2NA 04-28 12:56
PROVIDERS: Pediatrics
DX: L03.114 Cellulitis of left upper limb (principal); I25.10 Atherosclerotic heart disease of native coronary artery without angina pectoris; R74.0 Nonspecific elevation of levels of transaminase and lactic acid dehydrogenase [LDH]; S51.852A Open bite of left forearm, initial encounter; Z86.711 Personal history of pulmonary embolism; Z79.01 Long term (current) use of anticoagulants; I25.2 Old myocardial infarction; R32 Unspecified urinary incontinence; W55.01XA Bitten by cat, initial encounter; Z95.5 Presence of coronary angioplasty implant and graft
CPT/HCPCS: 2NASP; ERO; 36415; 73090-LT; 73110-LT; 76881; 81001; 87040; 93005; 93010; 96374; 96375; J0696; J3101